=== PATIENT | female | born 1980 | race Caucasian/White ===

== ENCOUNTER 2022-06-05 15:38 | Emergency (ER) | payer OTHER, BC ==
[2022-06-05 16:12] VITALS: BP 109/72; PULSE 73; RESP 20; TEMP 98.2; BMI 28.5
[2022-06-05] MEDS ORDERED: IBUPROFEN 600 MG TABLET (FP) PO ONE ×2 (16:12→16:16)
== END 2022-06-05 17:17 | disposition home or self-care (01) ==
LOC: FER 15:38
DX: M25.561 Pain in right knee (principal)
CPT/HCPCS: 73562-TC-RT-FY; 99283-25